=== PATIENT | female | born 1975 | race Caucasian/White ===

== ENCOUNTER 2023-10-05 16:36 | Emergency (ER) | payer OTHER ==
[~2023-10-05] VITALS: Ht 170.2 cm; Wt 81.6 kg
[2023-10-05 16:44] VITALS: BP_SYST 153; PULSE 96; RESP 20; TEMP 98.3; O2SAT 100
[2023-10-05] MEDS: DEXAMETHASONE SOD PHOSPHATE 10 MG/ML VIAL IM ONE (17:11)
[2023-10-05] MEDS ORDERED: METH-776 PO (17:54)
[2023-10-05] MEDS ORDERED: BEN50 PO (17:54)
[2023-10-05] MEDS ORDERED: EPIN0.3P3 IM (17:56)
[2023-10-05 18:22] VITALS: BP_SYST 153; PULSE 96; RESP 20; TEMP 98.3; O2SAT 100
== END 2023-10-05 18:21 | disposition home or self-care (01) ==
LOC: SED 16:36
DX: T63.481A Toxic effect of venom of other arthropod, accidental (unintentional), initial encounter (principal); Z88.0 Allergy status to penicillin; Z79.899 Other long term (current) drug therapy; Y92.89 Other specified places as the place of occurrence of the external cause
CPT/HCPCS: 99283; 96372; J1100